=== PATIENT | male | born 1970 | race Caucasian/White ===

== ENCOUNTER 2019-07-12 14:42 | Observation (INO) ==
[2019-07-12] MEDS ORDERED: METOPROLOL TARTRATE 25 MG TABLET ONE (14:45)
[2019-07-12] MEDS ORDERED: TICAGRELOR 90 MG TABLET ONE (14:45)
[2019-07-12] MEDS ORDERED: DOCUSATE SODIUM 100 MG CAPSULE PO PRN (15:01)
[2019-07-12] MEDS ORDERED: ONDANSETRON 4 MG/2 ML VIAL IV PRN (15:01)
[2019-07-12] MEDS ORDERED: MAGNESIUM SULF RIDER 4 GM in PREMIX 1 EACH IV PRN (15:01)
[2019-07-12] MEDS ORDERED: MAGNESIUM SULF RIDER 2 GM in PREMIX 1 EACH IV PRN ×2 (15:01→15:10)
[2019-07-12] MEDS ORDERED: MORPHINE 4 MG/1 ML VIAL IV PRN (15:01)
[2019-07-12] MEDS ORDERED: BISACODYL 5 MG TABLET PO PRN (15:01)
[2019-07-12] MEDS ORDERED: METOPROLOL TARTRATE 25 MG TABLET PO STA (15:09)
[2019-07-12] MEDS ORDERED: ROSUVASTATIN 20 MG TABLET PO SCH (15:09)
[2019-07-12] MEDS ORDERED: TICAGRELOR 90 MG TABLET PO STA (15:09)
[2019-07-12] MEDS ORDERED: NITROGLYCERIN 2% OINT 1 INCH/GM PACK TOP STA (15:10)
[2019-07-12] MEDS ORDERED: diphenhydrAMINE CAP 25 MG CAPSULE PO ONE (15:10)
[2019-07-12] MEDS ORDERED: POTASSIUM CHLORIDE RIDER 10 MEQ in PREMIX 1 EACH IV PRN (15:10)
[2019-07-12] MEDS ORDERED: DIAZEPAM 5 MG TABLET PO ONE (15:10)
[2019-07-12 15:20] LABS: Basophils % 0.3 % (0.0-0.8); Eosinophils # 0.1 10*3/uL (0.0-0.87); Eosinophils % 0.7 % (0.00-10.9); Hematocrit 50.8 VOL% (42.0-52.0); Hemoglobin 17.2 GM/DL (14.0-18.0); Immature Granulocytes % 0.7 %; Lymphocytes # 1.6 10*3/uL (1.4-4.0); Lymphocytes % 11.7 % (21.2-54.2); Mean Corpuscular HGB Conc 33.9 GM/DL (32-36); Mean Corpuscular Volume 89.1 FL (87-102); Mean Platelet Volume 9.8 FL (9.6-12.0); Neutrophils % 76.6 % (38.7-73.9); Platelet Count 231 T/CUMM (130-400); Red Cell Distribution Width 12.6 % (9.3-17.3); White Blood Count 13.6 T/CUMM (4-12)
[2019-07-12 15:39] LABS: Albumin 4.1 G/DL (3.4-5.0); Bilirubin,Total 0.4 MG/DL (0.2-1.0); Calcium 8.9 MG/DL (8.5-10.1); Osmolality,Calculated 271.1 MOS/KG (273-304); Thyroid Stimulating Hormone 1.54 uIU/ml (0.358-3.74); Total Protein 7.8 G/DL (6.4-8.3)
[2019-07-12] MEDS ORDERED: LIDOCAINE 1% 20 ML VIAL ONE (16:22)
[2019-07-12] MEDS ORDERED: HEPARIN/NACL 0.9% 2 UNITS/ML 1,000 ML IV ONE (16:22)
[2019-07-12] MEDS ORDERED: HYDROmorphone 2 MG/1 ML VIAL ONE (16:37)
[2019-07-12] MEDS ORDERED: MIDAZOLAM 2 MG/2 ML VIAL ONE (16:37)
[2019-07-12] MEDS ORDERED: ONDANSETRON 4 MG/2 ML VIAL ONE (16:40)
[2019-07-12] MEDS ORDERED: BIVALIRUDIN 250 MG VIAL IV ONE (17:02)
[2019-07-12] MEDS ORDERED: HEPARIN/NACL 0.9% 2 UNITS/ML 500 ML IV ONE (17:12)
[2019-07-12] MEDS ORDERED: BIVALIRUDIN 250 MG in SODIUM CHLORIDE 0.9% 50 ML IV SCH (17:30)
[2019-07-12] MEDS ORDERED: NITROGLYCERIN SL 0.4 MG TABLET SL PRN (17:36)
[2019-07-12] MEDS ORDERED: ZALEPLON 5 MG CAPSULE PO PRN (17:36)
[2019-07-12] MEDS: SODIUM CHLORIDE 0.45% 1,000 ML IV SCH (18:35)
[2019-07-12 19:06] LABS: CKMB % 11.3 %
[2019-07-12 19:14] LABS: Troponin I 15.2 NG/ML (0.00-0.045)
[2019-07-12] MEDS: TICAGRELOR 90 MG TABLET PO SCH (21:34)
[2019-07-13 00:04] LABS: Troponin I 19.9 NG/ML (0.00-0.045)
[2019-07-13] MEDS: SODIUM CHLORIDE 0.45% 1,000 ML IV SCH (01:08)
[2019-07-13 05:57] LABS: Calcium 8.3 MG/DL (8.5-10.1); Osmolality,Calculated 273.8 MOS/KG (273-304)
[2019-07-13 06:02] LABS: Risk Ratio 4.65; VLDL CHOLESTEROL 23.4 MG/DL
[2019-07-13 08:29] VITALS: BP 100/66
[2019-07-13] MEDS: TICAGRELOR 90 MG TABLET PO SCH (08:41)
[2019-07-13] MEDS ORDERED: PANTOPRAZOLE 40 MG TABLET PO SCH (09:00)
[2019-07-13] MEDS ORDERED: PARoxetine 20 MG TABLET PO SCH (09:00)
[2019-07-13] MEDS ORDERED: METOPROLOL SUCCINATE XL 25 MG TABLET PO SCH (09:00)
[2019-07-13] MEDS ORDERED: ASPIRIN EC 81 MG TABLET PO SCH (09:00)
[2019-07-13] MEDS ORDERED: ROSUVASTATIN 20 MG TABLET PO SCH (21:00)
== END 2019-07-13 09:38 | disposition home or self-care (01) ==
LOC: EDUNIT# → EDBD → N.EDINP 14:42 → N.ED 14:42 → N.TELES 16:25
PROVIDERS: ADMIT Internal Medicine Cardiovascular Disease; ATTEND Internal Medicine Cardiovascular Disease
PROC: CLCCHCL (ICD-10-PCS; 2019-07-12 17:00)